=== PATIENT | female | born 1985 | race Caucasian/White ===

== ENCOUNTER 2020-07-14 09:14 | Inpatient (IN) | payer OTHER ==
[2020-07-14 10:28] LABS: ABSOLUTE EOSINOPHILS # (AUTO) 0.2 10^3/uL (0.0-0.6); ABSOLUTE LYMPHOCYTES (AUTO) 1.7 10^3/uL (0.5-4.7); ABSOLUTE MONOCYTES (AUTO) 0.7 10^3/uL (0.1-1.4); BASOPHILS % (AUTO) 0.3 % (0-2); EOSINOPHILS % (AUTO) 1.2 % (0-6); HEMATOCRIT 33.9 % (36.0-47.0); HEMOGLOBIN 11.7 g/dL (12.0-15.5); LYMPHOCYTES % (AUTO) 11.7 % (13-45); MEAN CORPUSCULAR HEMOGLOBIN 30.4 pg (27.0-33.4); MEAN CORPUSCULAR HGB CONC 34.5 g/dL (32.0-36.0); MEAN CORPUSCULAR VOLUME 88 fl (80-97); PLATELET COUNT 184 10^3/uL (150-450); RED BLOOD COUNT 3.83 10^6/uL (3.72-5.28); SEGMENTED NEUTROPHILS % (AUTO) 81.8 % (42-78); TOTAL CELLS COUNTED % (AUTO) 100 %; WHITE BLOOD COUNT 14.7 10^3/uL (4.0-10.5)
[2020-07-14 10:28] LABS: T.VAGINALIS (WET MOUNT) NO TRICHOMONAS SEEN; WBCS (WET MOUNT) RARE WBCS SEEN; YEAST (WET MOUNT) NO YEAST SEEN
[2020-07-14] MEDS ORDERED: BETAMET ACET/BETAMET NA INJ 6 MG/1 ML ONE (10:41)
[2020-07-14 11:01] LABS: APPEARANCE,URINE SLIGHTLY-CLOUDY; BILIRUBIN,URINE NEGATIVE (NEGATIVE); COLOR,URINE YELLOW; GLUCOSE, URINE NEGATIVE (NEGATIVE); KETONES,URINE 20 mg/dL (NEGATIVE); LEUKOCYTE ESTERASE,URINE NEGATIVE (NEGATIVE); NITRITE,URINE NEGATIVE (NEGATIVE); PROTEIN,URINE 30 mg/dL (NEGATIVE); UROBILINOGEN,URINE NEGATIVE mg/dL (<2.0)
[2020-07-14 11:23] LABS: URINE AMPHETAMINES SCREEN NEGATIVE; URINE BARBITURATES SCREEN NEGATIVE; URINE BENZODIAZEPINES SCREEN NEGATIVE; URINE COCAINE SCREEN NEGATIVE; URINE MARIJUANA (THC) SCREEN NEGATIVE; URINE METHADONE SCREEN NEGATIVE; URINE PHENCYCLIDINE SCREEN NEGATIVE
[2020-07-14] MEDS ORDERED: RINGERS SOLUTION,LACTATED 1,000 ML IV PRN ×2 (11:30→13:08)
[2020-07-14 11:57] LABS: CHLAM PCR NOT DETECTED (NOT DETECT)
[2020-07-14] MEDS ORDERED: HYDROXYZINE PAMOATE 50 MG CAPSULE ONE ×2 (12:16→22:05)
[2020-07-14] MEDS ORDERED: HYDROXYZINE PAMOATE 50 MG CAPSULE PO ONE (12:17)
[2020-07-14] MEDS ORDERED: NIFEDIPINE 30 MG TAB.ER.24 PO ONE ×2 (13:10→13:36)
--- NOTE | 2020-07-14 16:06 | RADIOLOGY REPORT (SQ) ---
EXAM DESCRIPTION: U/S OB LIMITED IMAGES COMPLETED DATE/TIME: 07/14/2020 10:58 am REASON FOR STUDY: PLACENTAL LOCATION, [place], [place]ANCIS[place] COMPARISON: None. TECHNIQUE: Limited transabdominal grayscale ultrasound for evaluation of specific requested obstetri shawn parameters. LIMITATIONS: None. FINDINGS: CLINICAL DATES: 32 week 5 day. EGA: 32 week 1 day. CHULA: 09/07/2020. EFW: 1890 g. PERCENTILE: 36%. CERVICAL LENGTH: Not adequately visualized. JOSE FRANCISCO: 8.2 cm. LVP: 4.5 x 5.2 cm. FHR: 153 beats per minute. PRESENTATION: Cephalic. PLACENTA: Posterior. ANATOMY: Not assessed OTHER: No other significant findings. IMPRESSION: LIMITED OBSTETRICAL ULTRASOUND WITH MEASURED PARAMETERS DELINEATED ABOVE. Trimester of : Third trimester - 28 weeks to delivery. TECHNICAL DOCUMENTATION: JOB ID: [id number] 2010 [employer]- All Rights Reserved Reading location - IP/workstation name: [email or web address]
--- NOTE | 2020-07-14 17:26 | Admission Physical ---
Datetime Report Generated by CPN: 07/14/2020 17:26 CURRENT ADMISSION Hx Assessment: The History has been Reviewed and is Current Chief Complaint: Uterine Contractions Chief Complaint Other: 32.5 wks EGA with contractions increasing in frequency and thick mucus with blood tinge-Rule out labor Admit Impression : , Intrauterine ; Observation/Evaluation Admit Plan: Observation/Evaluation ALLERGIES Medication Allergies: No Medication Allergies: No Known Drug Allergies (05/09/2011) Latex: Latex Allergies Food Allergies: None Environmental Allergies: None OBSTETRICAL HISTORY EDC: 09/03/2020 00:00 : 3 Para: 2 (Annotations: Data stored by CPN on behalf of user) Term: 2 : 0 SAB: 0 IAB: 0 Ectopic: 0 Livin Cesareans: 0 VBACs: 0 Multiple Births: 0 Gestational Diabetes: Yes Rh Sensitization: No Incompetent Cervix: No JERE: No Infertility: No ART Treatment: No Uterine Anomaly: No IUGR: No Hx Previous C/S: No Macrosomia: No Hx Loss/Stillborn: No PIH: No Hx : No Placenta Previa/Abruption: No Depression/PP Depression: No PTL/PROM: Yes Post Hemorrhage: No Current Procedures: Ultrasound Obstetrical History Comments: G1- 2009, vaginal G2- 2010, vaginal G3- Current, GDM, late PNC 21 weeks, hospitalized for contractions. SEE RECORDS Alcohol: No Marijuana : No Cocaine: No Other Illicit Drugs: No Cigarettes: Former Smoker. 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 Heart Disease: No Hosp/Surgery: Yes Autoimmune Disorder: No Anesthetic Complications: No Kidney Disease: No Abnormal Pap Smear: No Neuro/Epilepsy: No Psychiatric Disorders: No Other Medical Diseases: No Hepatitis/Liver Disease: No Significant Family History: No Varicosities/Phlebitis: No Trauma/Violence : No Thyroid Dysfunction: No Medical History Comments: Childbirth INFECTIOUS HISTORY Gonorrhea: No Genital Herpes: No Chlamydia: No Tuberculosis: No Syphilis: No Hepatitis: No HIV/AIDS Exposure: No Rash or Viral Illness: No HPV: No PHYSICAL EXAM General: Normal HEENT: Normal Neurologic: Normal Thyroid: Normal Heart: Normal Lungs: Normal Breast: Normal Back: Normal Abdomen: Normal Genitourinary Exam: Normal Extremities: Normal DTRs: Normal Pelvic Type: Adequate Physical Exam Comments: SSE done and a moderate amount of mucus noted with a dark red tinge. No active bleeding from cervix. Cervix appeared cl to one cm, thick No fluid with cough GBS, wet prep, G/C obtained Vital Signs: Reviewed; Within Normal Limits VAGINAL EXAM Dilatation: 1 Effacement: 0 Station: -3 Contraction Comments: every 4-6 minutes MEMBRANES Membranes: Intact FETUS A EGA: 32.5 Monitoring: External US FHR- Baseline: 135 Variability: Moderate 6-25bpm Accelerations: 15X15 Decelerations: None FHR Category: Category I Presentation: Vertex Admit Comment: at 32.5 wks EGA with irregular but frequent contractions which are painful. She also was experiencing blood tinged mucus vaginally She had IVFs and a dose of betamethasone but contractions not spacing out -Admit for observation overnight -VSS -Labs normal. GBS obtained and pending as is G/C probe -Will continue hydration and give Procardia 30mg now followed by 10mg Q6 hours -If contractions do not space out with procardia will plan to begin Antibiotics for unknown GBS status and Magnesium -If remains stable and contractions stop, will plan on Betamethasone 12 mg IM tomorrow at 11 am and discharge with precautions at that time. PLANS FOR LABOR AND DELIVERY Labor and Delivery: None Pain Management: Epidural Feeding Preference: Breast Benefit of Breast Feed Discussed: Yes Circumcision: Yes INFORMED CONSENT Informed Consent Obtained: Vaginal Delivery; Section Delivery; Vacuum/Forceps Assist; Risks, Benefits and Alternatives Discussed Signature: with User ID: [email or web address] : with User ID: [email or web address]
[2020-07-14] MEDS ORDERED: NIFEDIPINE 10 MG CAPSULE ONE (19:55)
[2020-07-14] MEDS: NIFEDIPINE 10 MG CAPSULE PO SCH (20:00)
[2020-07-14] MEDS: HYDROXYZINE PAMOATE 50 MG CAPSULE PO SCH (22:07)
[2020-07-15] MEDS ORDERED: NIFEDIPINE 10 MG CAPSULE ONE ×2 (01:53→06:56)
[2020-07-15] MEDS: NIFEDIPINE 10 MG CAPSULE PO SCH ×2 (01:54→06:58)
[2020-07-15] MEDS ORDERED: MAGNESIUM SULFATE 4 GM/100 ML RTUPB IV ONE ×2 (04:07→04:28)
[2020-07-15] MEDS ORDERED: MAGNESIUM SULFATE 20 GM/500 ML RTUINJ IV PRN (04:07)
[2020-07-15] MEDS ORDERED: NALBUPHINE HCL INJ 10 MG/1 ML AMPULE INJ ONE (04:08)
[2020-07-15] MEDS ORDERED: BETAMET ACET/BETAMET NA INJ 6 MG/1 ML IM ONE (04:10)
[2020-07-15] MEDS ORDERED: BETAMET ACET/BETAMET NA INJ 6 MG/1 ML ONE (04:27)
[2020-07-15] MEDS ORDERED: PENICILLIN G-K 5 MILLION UNIT VIAL ONE ×2 (04:28→11:06)
[2020-07-15] MEDS ORDERED: MAGNESIUM SULFATE 20 GM/500 ML RTUINJ IV ONE (04:28)
[2020-07-15] MEDS ORDERED: NALBUPHINE HCL INJ 10 MG/1 ML AMPULE ONE (04:28)
[2020-07-15] MEDS ORDERED: PENICILLIN G POTASSIUM 5,000,000 UNIT in DEXTROSE 5%-WATER 100 ML IV ONE (05:00)
[2020-07-15] MEDS ORDERED: PENICILLIN G POTASSIUM 2,500,000 UNIT in DEXTROSE 5%-WATER 50 ML IV SCH (09:00)
[2020-07-15] MEDS ORDERED: LIDOCAINE 1% INJ-PF (10 MG/ML) 30 ML SDV ONE (11:06)
[2020-07-15] MEDS ORDERED: OXYTOCIN/0.9 % SODIUM CHLORIDE 0 UNIT/0 ML RTUINJ ONE (11:06)
[2020-07-15] MEDS ORDERED: OXYTOCIN 10 UNIT/ML VIAL ONE (11:06)
[2020-07-15] MEDS ORDERED: MISOPROSTOL 0.2 MG TABLET ONE (11:06)
[2020-07-15] MEDS ORDERED: OXYTOCIN/0.9 % SODIUM CHLORIDE 30 UNIT/500 ML RTUINJ IV PRN ×2 (13:32→17:13)
[2020-07-15] MEDS ORDERED: EPHEDRINE SULFATE INJ 50 MG/1 ML AMPULE ONE (14:22)
[2020-07-15] MEDS ORDERED: ROPIVACAINE HCL 0.2% INJ/PF (2 MG/ML) 20 ML SDV ONE (14:23)
[2020-07-15] MEDS ORDERED: FENTANYL/BUPIVACAINE/NS/PF 300 MCG/150 ML RTUINJ EPI ONE (14:23)
[2020-07-15] MEDS ORDERED: DIPHENHYDRAMINE HCL 25 MG CAPSULE PO PRN (17:13)
[2020-07-15] MEDS ORDERED: ACETAMINOPHEN 325 MG TABLET PO PRN (17:13)
[2020-07-15] MEDS ORDERED: PROMETHAZINE HCL INJ 25 MG/1 ML VIAL IV PRN (17:13)
[2020-07-15] MEDS ORDERED: DIBUCAINE 1% OINTMENT 28 GM TP PRN (17:13)
[2020-07-15] MEDS ORDERED: ZOLPIDEM TARTRATE 5 MG TABLET PO PRN (17:13)
[2020-07-15] MEDS ORDERED: DIPH/PERTUSS(ACELL)/TETANUS VAC/PF 0.5 ML SYR (>=10YO) IM PRN (17:13)
[2020-07-15] MEDS ORDERED: MEASLES,MUMPS&RUBELLA VACC/PF 0.5 ML VIAL SUBCUT PRN (17:13)
[2020-07-15] MEDS ORDERED: GLYCERIN/WITCH HAZEL LEAF 1 EACH MED..WIPE TP PRN (17:13)
[2020-07-15] MEDS ORDERED: NA PHOS,M-B/NA PHOS,DI-BA (ADULT) 133 ML ENEMA PR PRN (17:13)
[2020-07-15] MEDS ORDERED: BENZOCAINE/MENTHOL AEROSOL SPRAY 56 ML TOP PRN (17:13)
[2020-07-15] MEDS ORDERED: PSEUDOEPHEDRINE HCL 30 MG TABLET PO PRN (17:13)
[2020-07-15] MEDS ORDERED: MAGNESIUM HYDROXIDE SUSP 30 ML UDCUP PO PRN (17:13)
[2020-07-15] MEDS ORDERED: PROMETHAZINE HCL 25 MG SUPP.RECT PR PRN (17:13)
[2020-07-15] MEDS ORDERED: ACETAMINOPHEN WITH CODEINE #3 TABLET PO PRN ×2 (17:13)
[2020-07-15] MEDS ORDERED: PROMETHAZINE HCL 25 MG TABLET PO PRN (17:13)
--- NOTE | 2020-07-15 19:22 | Warning Signs in Babies ---
VOD Warning Signs Datetime Report Generated by [facility]: 07/15/2020 19:22 VOD#608 -Warning Signs in Babies: Viewed with Parent(s)/Family (07/15/2020 19:12:Werner Marcial RN)
--- NOTE | 2020-07-15 19:23 | Delivery Summary ---
Del Sum A-C Datetime Report Generated by CPN: 07/15/2020 19:23 DELIVERY PERSONNEL DELIVERY PERSONNEL: [id number] Delivery Doctor:: Yanely Cummins CNM MANAGER MEDICAL WRITING:: Minh Mcdonnell MANAGER MEDICAL WRITING Labor and Delivery Nurse:: Marleny Yoon RNclothes presser Nurse:: Diane Viera RN Nursery Nurse:: Carri Andres RN Nursery Nurse:: Merced Page RN MATERNAL INFORMATION Delivery Anesthesia: Epidural Medications After Delivery: Pitocin 30 Units in 500ml NS/D5W Estimated Blood Loss (ml): 150 Delivery QBL Comment: 175 Maternal Complications: Premature Rupture of Membranes Provider Comments: NED VIABLE MALE WITH SPONTANEOUS CRY. PT ONLY PUSHED FOR 2 CONTRACTIONS, THEREFORE NURSERY RNs WERE IN JUST AFTER DELIVERY. BABY VIGOROUS, MOUTH AND NOSE BULB SUCTIONED. CORD DOUBLE CLAMPED AND CUT. SPONTANEOUS INTACT PLACENTA WITH 3VC. NO LACERATIONS. MOTHER STABLE IN L_D#5. INFANT TX TO NURSERY FOR PREMATURITY. LABOR SUMMARY EDC: 09/03/2020 00:00 No. Babies in Womb: 1 Attempted: No Labor Anesthesia: Epidural LABOR INFORMATION Reason for Induction: Not Applicable Onset of Labor: 07/15/2020 11:00 Complete Dilatation: 07/15/2020 16:45 Oxytocin: Augmentation Group B Beta Strep: Unknown Antibiotics # of Doses: 2 Antibiotics Time of Last Dose: 07/15/2020 11:00 Name of Antibiotic Given: Reynaldo MEMBRANES Membranes Rupture Method: Spontaneous Rupture of Membranes: 07/15/2020 11:00 Length of Rupture (hr): 5.90 Amniotic Fluid Color: Clear Amniotic Fluid Amount: Small Amniotic Fluid Odor: Normal STAGES OF LABOR Stage 1 hr: 5 Stage 1 min: 45 Stage 2 hr: 0 Stage 2 min: 9 Stage 3 hr: 0 Stage 3 min: 6 Total Time in Labor hr: 6 Total Time in Labor min: 0 VAGINAL DELIVERY Episiotomy: None Laceration #1: None Laceration Extension #1: N/A Laceration Repair: Not Applicable Sponge Count Correct: N/A Sharps Count Correct: N/A CSECTION DELIVERY Primary Indication: N/A Secondary Indication: N/A CSection Incidence: N/A Labor: N/A Elective: N/A CSection Incision: N/A BABY A INFORMATION Infant Delivery Date/Time: 07/15/2020 16:54 Method of Delivery: Vaginal Born in Route : No : N/A Forceps: N/A Vacuum Extraction: N/A Shoulder Dystocia : No PRESENTATION/POSITION BABY A Presentation: Cephalic Cephalic Presentation: Vertex Vertex Position: Right Occipital Anterior Breech Presentation: N/A PLACENTA INFORMATION BABY A Placenta Delivery Time : 07/15/2020 17:00 Placenta Method of Delivery: Spontaneous Placenta Status: Delivered SCORES BABY A Heart Rate 1 min: >100 bpm Resp Effort 1 min: Good Cry Reflex Irritability 1 min: Cough or Sneeze or Pulls Away Muscle Tone 1 min: Some Flexion of Extremities Color 1 min: Body [place], Extremities Blue Resuscitation Effort 1 min: Tactile Stimulation SCORE 1 MIN: 8 Heart Rate 5 min: >100 bpm Resp Effort 5 min: Good Cry Reflex Irritability 5 min: Cough or Sneeze or Pulls Away Muscle Tone 5 min: Active Motion Color 5 min: Body [place], Extremities Blue Resuscitation Effort 5 min: N/A SCORE 5 MIN: 9 INFANT INFORMATION BABY A Gestational Age at Delivery: 32.6 Gestational Status: - <34 Weeks Outcome : Liveborn Condition : Stable Infant Sex: Male IDENTIFICATION BABY A Verification Date/Time: 07/15/2020 16:54 ID Band Number: [id number] Mother's Name Verified: Yes RN Verifying Infant: R Car Rn Additional Verifying Personnel: A feuston RN WEIGHT/LENGTH BABY A Birthweight (gm): 2047 Infant Weight (lb): 4 Infant Weight (oz): 8 Length (in): 17.00 Infant Length (cm): 43.18 CORD INFORMATION BABY A No. Cord Vessels: 3 Nuchal Cord : N/A Cord Blood Taken: Yes-For Eval (Mom's Blood Type - or O+) Suction: Mouth; Nose ASSESSMENT BABY A Infant Complications: None Physical Findings at Delivery: Within Normal Limits Respirations: Appears Normal Skin to Skin: No Transferred To: NICU BABY B INFORMATION : N/A SIGNATURES Assignment: Raina Tellez MD Signature: with User ID: [email or web address] : with User ID: [email or web address] : I was personally available for consultation and serving as supervising physician for the MLP.
--- NOTE | 2020-07-15 19:24 | Birth Certificate Data ---
Cert Data Datetime Report Generated by [facility]: 07/15/2020 19:23 CERTIFICATE DATA Delivery Provider: Yanely Cummins CNM (07/14/2020 09:26:Myrna Aparicio RN) 47a. Care: Yes (07/14/2020 09:26:Karina Huddleston RN) 47b. Date of First Visit: 05/21/2020 00:00 (07/14/2020 09:26:Karina Huddleston RN) 47c. Date of Last Visit: 06/21/2020 00:00 (07/14/2020 09:26:Karina Huddleston RN) 47d. Number of Visits: 3 (07/14/2020 09:26:Karina Huddleston RN) 48a. Number of Prev Live Births: 2 (07/14/2020 09:26:Hola Cooley RN) 48b. Now Livin (07/14/2020 09:26:Hola Cooley RN) 48c. Live Births Now : 0 (07/14/2020 09:26:QS system process) 48d. Date of Last Live : 05/08/2020 00:00 (07/14/2020 09:26:Hola Cooley RN) 48e. Losses: 0 (07/14/2020 09:26:Hola Cooley RN) RISK FACTORS IN THIS 49a. Diabetes: Yes (07/14/2020 09:26:Hola Cooley RN) Type of Diabetes: Gestational Diabetes (07/14/2020 09:26:Hola Cooley RN) 49b. Hypertension: No (07/14/2020 09:26:Hola Cooley RN) 49c. Previous Births: 0 (07/14/2020 09:26:Hola Cooley RN) 49d. Stillborns: No (07/14/2020 09:26:Hola Cooley RN) 49d. IUGR: No (07/14/2020 09:26:Hola Cooley RN) 49e. Infertility Treatment: No (07/14/2020 09:26:Hola Cooley RN) 49f. Previous Cesareans: 0 (07/14/2020 09:26:Hola Cooley RN) Mother's Height 50b. Height Inches: 66 (07/15/2020 14:41:QS system process) Mother's Weight 51a. Pre- Weight (lbs): 199 (07/14/2020 09:26:Karina Huddleston RN) 51b. Weight at Delivery (lbs): 198 (07/15/2020 14:41:QS system process) Infections Present/Treated 53a. Gonorrhea: No (07/14/2020 09:26:Hola Cooley RN) 53b. Syphilis: No (07/14/2020 09:26:Hola Cooley RN) Results this Hospital Visit: NONREACTIVE (07/14/2020 10:13:QS system process) 53c. Chlamydia: No (07/14/2020 09:26:Hola Cooley RN) 53d. Hepatitis B: No (07/14/2020 09:26:Hola Cooley RN) Results this Hospital Visit: Negative (07/14/2020 09:26:Hola Cooley RN) 53h. Mother Tested for HBsAG: Yes (07/14/2020 09:26:Karina Huddleston RN) 53i. Date Tested: 05/21/2020 00:00 (07/14/2020 09:26:Karina Huddleston RN) 53j. Test Result: Negative (07/14/2020 09:26:Hola Cooley RN) Obstetric Procedures 54a, b, c. Obstetric Procedures: Ultrasound (07/14/2020 09:26:Hola Cooley RN) Cigarette Smoking Cigarette Smoking: Former Smoker. [id number] (07/14/2020 09:26:Hola Cooley RN) 55a. 3 Months Before Preg - Ci (07/14/2020 09:26:Hola Cooley RN) 55a. Packs: 0 (07/14/2020 09:26:Karina Huddleston RN) 55b. 1st Trimester of Preg- Ci (07/14/2020 09:26:Hola Cooley RN) 55b. Packs: 0 (07/14/2020 09:26:Karina Huddleston RN) 55c. 2nd Trimester of Preg- Ci (07/14/2020 09:26:Hola Cooley RN) 55c. Packs: 0 (07/14/2020 09:26:Karina Huddleston RN) 55d. 3rd Trimester of Preg- Ci (07/14/2020 09:26:Hola Cooley RN) 55d. Packs: 0 (07/14/2020 09:26:Karina Huddleston RN) Onset of Labor 56a. PROM >12 Hrs: 5.90 (07/14/2020 09:26:QS system process) 56b. Precipitous Labor <3 Hrs: 6 (07/14/2020 09:26:QS system process) 56c. Prolonged Labor > 20 Hrs: 6 (07/14/2020 09:26:QS system process) 57a. Induction of Labor: Augmentation (07/14/2020 09:26:Werner Marcial RN) 57c. Non-Vertex Presentation A: Vertex (07/14/2020 09:26:Myrna Aparicio RN) 57d. Steroids - Lung Mat: Celestone 12mg IM - Dose 2 (07/15/2020 04:44:Melinda Barreto RN) 57e. Antibiotics During Labor: 07/15/2020 11:00 (07/14/2020 09:26:Marleny Yoon RN) 57f. Mat [place] or Temp >100.4: 99.2 (07/14/2020 09:26:Werner Marcial RN) 57g. Moderate/Heavy Meconium: Clear (07/15/2020 10:59:Marleny Yoon RN) 57h. Intolerance of Labor: N/A (07/14/2020 09:26:Werner Marcial RN) : N/A (07/14/2020 09:26:Werner Marcial RN) 57i. Epidural/Spinal Anesthesia: Epidural (07/14/2020 09:26:Marleny Yoon RN) Method of Delivery 58a. Forceps - Unsuccessful A: N/A (07/14/2020 09:26:Myrna Aparicio RN) 58b. Vacuum - Unsuccessful A: N/A (07/14/2020 09:26:Myrna Aparicio RN) 58c. Presentation at 58c. Presentation at - A : Vertex (07/14/2020 09:26:Myrna Aparicio RN) 58c. Presentation at - A : N/A (07/14/2020 09:26:Myrna Aparicio RN) 58c. Presentation at - A : Cephalic (07/15/2020 10:59:Marleny Yoon RN) Final Route and Method of Del 58d. Baby A Route/Delivery: Vaginal (07/15/2020 16:54:Myrna Aparicio RN) 58e. Trial of Labor Attempted: No (07/14/2020 09:26:Marleny Yoon RN) 58e. Trial of Labor Attempted A: N/A (07/14/2020 09:26:Myrna Aparicio RN) 58e. Trial of Labor Attempted B: N/A (07/14/2020 09:26:Marleny Yoon RN) Maternal Morbidity 59b. 3rd or 4th Degree Lacs: None (07/14/2020 09:26:Marleny Yoon RN) Birthweight Baby A: 2047 (07/14/2020 09:26:Ginna Fitzgerald RN) 60a. Pounds : 4 (07/14/2020 09:26:QS system process) 60b. Ounces: 8 (07/14/2020 09:26:QS system process) 61. GA at Delivery Baby A: 32.6 (07/14/2020 09:26:Ginna Fitzgerald RN) : - <34 Weeks (07/14/2020 09:26:QS system process) 62a. 5 Minute Baby A: 9 (07/14/2020 09:26:QS system process)
[2020-07-15] MEDS: FAMOTIDINE 20 MG TABLET PO SCH (22:15)
[2020-07-15] MEDS: HYDROXYZINE PAMOATE 50 MG CAPSULE PO SCH (22:15)
[2020-07-16] MEDS: IBUPROFEN 800 MG TABLET PO SCH ×4 (01:16→17:22)
[2020-07-16] MEDS: DOCUSATE SODIUM 100 MG CAPSULE PO SCH ×3 (01:44→17:22)
[2020-07-16] MEDS: FERROUS SULFATE 325 MG TABLET PO SCH ×3 (01:44→17:22)
[2020-07-16 08:25] LABS: HEMATOCRIT 25.3 % (36.0-47.0); MEAN CORPUSCULAR HEMOGLOBIN 30.8 pg (27.0-33.4); MEAN CORPUSCULAR HGB CONC 34.5 g/dL (32.0-36.0); MEAN CORPUSCULAR VOLUME 89 fl (80-97); PLATELET COUNT 156 10^3/uL (150-450); RED BLOOD COUNT 2.83 10^6/uL (3.72-5.28); RED CELL DISTRIBUTION WIDTH 14.5 % (11.5-14.0)
[2020-07-16 08:30] LABS: HEMOGLOBIN 8.7 g/dL (12.0-15.5)
[2020-07-16] MEDS: FAMOTIDINE 20 MG TABLET PO SCH ×2 (10:00→21:52)
[2020-07-16] MEDS: PRENATAL VITAMIN W DHA CAPSULE PO SCH (10:00)
[2020-07-16] MEDS: SENNOSIDES/DOCUSATE 8.6-50 MG 1 EACH TABLET PO SCH (10:00)
--- NOTE | 2020-07-16 10:17 | PDOC PROGRESS REPORT ---
Subjective-OB Progress Note for:: 07/16/20 Subjective: t doing well, no complaints. She reports light bleeding, reg diet and voiding w/o difficulty. Physical Exam (OB) Vital Signs: Temp Pulse Resp BP Pulse Ox 97.5 F 85 17 113/57 L 100 07/16/20 08:00 07/16/20 08:00 07/16/20 08:00 07/16/20 08:00 07/16/20 08:00 Intake & Output 07/15/20 07/16/20 07/17/20 06:59 06:59 06:59 Intake Total 0 Output Total 600 Balance -600 Weight 89.9 kg - PIH/Pre-Eclampsia Clonus: Negative Headache: Absent Epigastric Pain: No Visual Changes: No - Maternal Morbidity 59. Maternal Morbidity (serious complications experinced by the mother associated with labor and delivery: None of the above - Lochia Lochia Amount: Scant < 10 ml Lochia Color: Rubra/Red - Abdomen Description: Soft, Round Fundal Description: Firm, Midline Fundal Height: u/u - u/2 Objective-Diagnostic Laboratory: 07/16/20 07:26 07/16/20 07:26 WBC 15.0 H RBC 2.83 L Hgb 8.7 L D Hct 25.3 L MCV 89 MCH 30.8 MCHC 34.5 RDW 14.5 H Plt Count 156 Assessment and Plan(PN) - Assessment and Plan (1) Vaginal delivery Is this a current diagnosis for this admission?: Yes (2) delivery Is this a current diagnosis for this admission?: Yes (3) SROM (spontaneous rupture of membranes) Is this a current diagnosis for this admission?: Yes - Time Spent with Patient Time with patient: Less than 15 minutes Medications reviewed and adjusted accordingly: Yes - Disposition Anticipated Discharge Disposition: Home, Self Care Anticipated Discharge Timeframe: within 24 hours
[2020-07-16] MEDS: HYDROXYZINE PAMOATE 50 MG CAPSULE PO SCH (21:52)
[2020-07-17] MEDS: IBUPROFEN 800 MG TABLET PO SCH ×2 (02:07→10:07)
[2020-07-17 08:25] VITALS: BP 99/56
[2020-07-17] MEDS: PRENATAL VITAMIN W DHA CAPSULE PO SCH (10:06)
[2020-07-17] MEDS: DOCUSATE SODIUM 100 MG CAPSULE PO SCH (10:07)
[2020-07-17] MEDS: FERROUS SULFATE 325 MG TABLET PO SCH (10:07)
[2020-07-17] MEDS: FAMOTIDINE 20 MG TABLET PO SCH (10:07)
[2020-07-17] MEDS: SENNOSIDES/DOCUSATE 8.6-50 MG 1 EACH TABLET PO SCH (10:07)
--- NOTE | 2020-07-17 11:38 | PDOC DISCHARGE SUMMARY ---
Impression - Admit/DC Date/PCP Admission Date/Primary Care Provider: 07/14/20 13:12 Discharge Date: 07/17/20 - Discharge Diagnosis (1) Vaginal delivery Is this a current diagnosis for this admission?: Yes (2) delivery Is this a current diagnosis for this admission?: Yes (3) SROM (spontaneous rupture of membranes) Is this a current diagnosis for this admission?: Yes - Additional Information Resuscitation Status: Full Code Discharge Diet: Regular Discharge Activity: Balance Activity w/Rest, Pelvic Rest Prescriptions: Ibuprofen [Motrin 800 mg Tablet] 800 mg PO Q8HP PRN #60 tablet PRN Reason: For Pain Home Medications: Pnv,Calcium 72/Iron/Folic Acid [ Plus Tablet] 1 each PO DAILY 07/14/20 Ibuprofen [Motrin 800 mg Tablet] 800 mg PO Q8HP PRN #60 tablet 07/17/20 HPI Gestational Age: 32.5 Reason(s) for Admission: Onset of Labor, Labor Procedures: NST, Management of Obstetric Complications Intrapartum Procedure(s): Spontaneous Vaginal Delivery Hospital Course 59. Maternal Morbidity (serious complications experinced by the mother associated with labor and delivery: None of the above Results Laboratory Results: WBC 15.0 10^3/uL (4.0-10.5) H 07/16/20 07:26 RBC 2.83 10^6/uL (3.72-5.28) L 07/16/20 07:26 Hgb 8.7 g/dL (12.0-15.5) L D 07/16/20 07:26 Hct 25.3 % (36.0-47.0) L 07/16/20 07:26 MCV 89 fl (80-97) 07/16/20 07:26 MCH 30.8 pg (27.0-33.4) 07/16/20 07:26 MCHC 34.5 g/dL (32.0-36.0) 07/16/20 07:26 RDW 14.5 % (11.5-14.0) H 07/16/20 07:26 Plt Count 156 10^3/uL (150-450) 07/16/20 07:26 Lymph % (Auto) 11.7 % (13-45) L 07/14/20 10:13 [place] % (Auto) 5.0 % (3-13) 07/14/20 10:13 Eos % (Auto) 1.2 % (0-6) 07/14/20 10:13 Baso % (Auto) 0.3 % (0-2) 07/14/20 10:13 Absolute Neuts (auto) 12.0 10^3/uL (1.7-8.2) H 07/14/20 10:13 Absolute Lymphs (auto) 1.7 10^3/uL (0.5-4.7) 07/14/20 10:13 Absolute Monos (auto) 0.7 10^3/uL (0.1-1.4) 07/14/20 10:13 Absolute Eos (auto) 0.2 10^3/uL (0.0-0.6) 07/14/20 10:13 Absolute Basos (auto) 0.0 10^3/uL (0.0-0.2) 07/14/20 10:13 Seg Neutrophils % 81.8 % (42-78) H 07/14/20 10:13 Fibrinogen 827 mg/dL (209-497) H 07/14/20 10:13 POC Glucose 93 mg/dL (70-110) 07/14/20 10:01 Urine Color YELLOW 07/14/20 09:39 Urine Appearance SLIGHTLY-CLOUDY 07/14/20 09:39 Urine pH 6.0 (5.0-9.0) 07/14/20 09:39 Ur Specific [place] 1.020 07/14/20 09:39 Urine Protein 30 mg/dL (NEGATIVE) H 07/14/20 09:39 Urine Glucose (UA) NEGATIVE mg/dL (NEGATIVE) 07/14/20 09:39 Urine Ketones 20 mg/dL (NEGATIVE) H 07/14/20 09:39 Urine Blood MODERATE (NEGATIVE) H 07/14/20 09:39 Urine Nitrite NEGATIVE (NEGATIVE) 07/14/20 09:39 Urine Bilirubin NEGATIVE (NEGATIVE) 07/14/20 09:39 Urine Urobilinogen NEGATIVE mg/dL (<2.0) 07/14/20 09:39 Ur Leukocyte Esterase NEGATIVE (NEGATIVE) 07/14/20 09:39 Urine WBC (Auto) 2 /HPF 07/14/20 09:39 Urine RBC (Auto) 1 /HPF 07/14/20 09:39 Squamous Epi Cells Auto 3 /HPF 07/14/20 09:39 Urine Mucus (Auto) FEW /LPF 07/14/20 09:39 Urine Ascorbic Acid NEGATIVE (NEGATIVE) 07/14/20 09:39 Trichomonas (Wet Prep) NO TRICHOMONAS SEEN 07/14/20 10:07 Vaginal WBC RARE WBCS SEEN 07/14/20 10:07 Vaginal Yeast NO YEAST SEEN 07/14/20 10:07 Urine Opiates Screen NEGATIVE 07/14/20 09:39 Urine Methadone Screen NEGATIVE 07/14/20 09:39 Ur Barbiturates Screen NEGATIVE 07/14/20 09:39 Ur Phencyclidine Scrn NEGATIVE 07/14/20 09:39 Ur Amphetamines Screen NEGATIVE 07/14/20 09:39 U Benzodiazepines Scrn NEGATIVE 07/14/20 09:39 Urine Cocaine Screen NEGATIVE 07/14/20 09:39 U Marijuana (THC) Screen NEGATIVE 07/14/20 09:39 RPR NONREACTIVE (NONREACTIVE) 07/14/20 10:13 Chlamydia DNA (PCR) NOT DETECTED (NOT DETECT) 07/14/20 10:07 N.gonorrhoeae DNA (PCR) NOT DETECTED (NOT DETECT) 07/14/20 10:07 Blood Type O POSITIVE 07/14/20 10:13 Antibody Screen NEGATIVE 07/14/20 10:13 Impressions: Obstetrics Ultrasound 07/14/20 00:00 IMPRESSION: LIMITED OBSTETRICAL ULTRASOUND WITH MEASURED PARAMETERS DELINEATED ABOVE. Trimester of : Third trimester - 28 weeks to delivery. Plan Plan of Treatment: f/u at [facility] 4 wks Time Spent: Less than 30 Minutes
== END 2020-07-17 14:29 | disposition home or self-care (01) | DRG 807 ==
LOC: LC 09:14 → LR 13:12 → OBSVTOIN 13:12 → 2S 07-15 21:50
PROVIDERS: ADMIT Obstetrics & Gynecology; ATTEND Obstetrics & Gynecology
PROC: 10E0XZZ Delivery of Products of Conception, External Approach (ICD-10-PCS; principal; 2020-07-15)
PROC: 3E0234Z Introduction of Serum, Toxoid and Vaccine into Muscle, Percutaneous Approach (ICD-10-PCS; 2020-07-17)
DX: O60.14X0 Preterm labor third trimester with preterm delivery third trimester, not applicable or unspecified (principal); Z37.0 Single live birth; O24.429 Gestational diabetes mellitus in childbirth, unspecified control; Z3A.32 32 weeks gestation of pregnancy; Z87.891 Personal history of nicotine dependence; Z23 Encounter for immunization
CPT/HCPCS: 1967; 36415; 76815; 80307; 81001; 82962; 85025; 85027; 85384; 86592; 86850; 86900; 86901; 87081; 87210; 87491; 87591; 88307; 90707; J0702; J2300; J2540; J2590; J2795; J3010; J3475; J3490; J7060